=== PATIENT | female | born 1990 | race Caucasian/White ===

== ENCOUNTER 2023-10-26 07:09 | Outpatient (CLI) | payer OTHER, SELFPAY ==
--- NOTE | 2023-10-26 07:15 | CRLHL7_ITS ---
For Patients: As a result of the Century Cures Act, medical imaging exams and procedure reports are released immediately into your electronic medical record. You may view this report before your referring provider. If you have questions, please contact your health care provider. INDICATION: Ultrasound for dates and viability. Eight week 3 day gestation by LMP Technique: Multiple grayscale and Doppler images obtained transabdominally and transvaginally. FINDINGS: Examination shows a single viable intrauterine gestation. [place]-rump length 1.9 cm, AGA of 8 weeks, 3 days. Mean gestational sac 3.7 cm, AGA of 9 weeks, 0 days. Yolk sac: 2.81 cm. Heart Rate: 167 bpm. Right ovary measures 4.5 x 2.3 x 3.2 cm. Left ovary measures 3.2 x 1.5 x 2.4 cm. IMPRESSION: 1. Single viable intrauterine . 2. Measurements are consistent with clinical dates. Dictated by Solo Song MD @ 10/27/2023 9:25:07 AM (Electronically Signed)
== END 2023-10-26 07:10 | disposition home or self-care (01) ==
PROVIDERS: Visit Provider Physician Assistant
DX: Z34.91 Encounter for supervision of normal pregnancy, unspecified, first trimester (principal); Z3A.08 8 weeks gestation of pregnancy
CPT/HCPCS: 76817; 84450; 84460; 86703; 86706; 86803; 86850; 86900; 86901; 87086; 87340; 87491; 87591

== ENCOUNTER 2023-10-26 08:09 | Outpatient (CLI) | payer OTHER, SELFPAY ==
[2023-10-26 13:33] LABS: Chlamydia DNA Amplified* NOT DETECTED (No Detected); GC DNA Amplified* NOT DETECTED (No Detected)
== END 2023-10-26 08:10 | disposition home or self-care (01) ==
PROVIDERS: PCP Physician Assistant; Visit Provider Physician Assistant
DX: Z34.81 Encounter for supervision of other normal pregnancy, first trimester (principal)
CPT/HCPCS: 82239; 84450; 84460; 86592; 86703; 86704; 86706; 86762; 86787; 86803; 86850; 86900; 86901; 87086; 87340; 87491; 87591

== ENCOUNTER 2024-01-05 11:20 | Outpatient (CLI) | payer BC, SELFPAY | END 2024-01-05 11:21 | disposition home or self-care (01) | LOC: US 11:20 | PROVIDERS: Visit Provider Obstetrics & Gynecology | DX: O09.522 Supervision of elderly multigravida, second trimester (principal); Z3A.18 18 weeks gestation of pregnancy | CPT/HCPCS: 76811 ==

== ENCOUNTER 2024-02-02 09:06 | Outpatient (CLI) | payer BC, SELFPAY | END 2024-02-02 09:07 | disposition home or self-care (01) | LOC: US 09:06 | PROVIDERS: Visit Provider Obstetrics & Gynecology | DX: O09.522 Supervision of elderly multigravida, second trimester (principal); Z3A.22 22 weeks gestation of pregnancy | CPT/HCPCS: 76816 ==

== ENCOUNTER 2024-03-07 15:15 | Outpatient (CLI) | payer BC, SELFPAY | END 2024-03-07 15:16 | disposition home or self-care (01) | LOC: NFLDREF 03-11 13:23 | PROVIDERS: Visit Provider Obstetrics & Gynecology | DX: Z34.92 Encounter for supervision of normal pregnancy, unspecified, second trimester (principal); Z3A.27 27 weeks gestation of pregnancy | CPT/HCPCS: 86592 ==

== ENCOUNTER 2024-03-29 09:04 | Outpatient (CLI) | payer BC, SELFPAY | END 2024-03-29 09:05 | disposition home or self-care (01) | PROVIDERS: Visit Provider Obstetrics & Gynecology | DX: Z34.93 Encounter for supervision of normal pregnancy, unspecified, third trimester (principal); Z3A.30 30 weeks gestation of pregnancy | CPT/HCPCS: 82239; 84450; 84460 ==

== ENCOUNTER 2024-03-31 09:50 | Outpatient (CLI) | payer BC, SELFPAY ==
--- NOTE | 2024-03-31 10:00 | CRLHL7_ITS ---
For Patients: As a result of the Century Cures Act, medical imaging exams and procedure reports are released immediately into your electronic medical record. You may view this report before your referring provider. If you have questions, please contact your health care provider. INDICATION: Abnormal LFTs, cholestasis during . TECHNIQUE: Ultrasound abdomen limited. Sonographic images of the right upper quadrant were obtained using odonnell-scale and color Doppler images. COMPARISON: None available. FINDINGS: Liver: Normal in size and echotexture. No suspicious masses. No intrahepatic biliary dilatation. Main portal vein is patent with hepatopetal flow. Gallbladder: Small amount of sludge within the gallbladder neck. Normal wall thickness. No pericholecystic fluid. Common bile duct: 5 mm. Pancreas: Visualized portions are unremarkable. Right kidney: Normal in size measuring 12 cm in length. Normal echotexture and cortex. No suspicious masses, stones, or hydronephrosis. Vasculature: Proximal abdominal aorta and IVC are unremarkable. IMPRESSION: 1. Small amount of gallbladder sludge. No sonographic evidence of acute cholecystitis. 2. Otherwise unremarkable right upper quadrant abdominal ultrasound. No biliary ductal dilation. Dictated by Leatha Truong MD @ 03/31/2024 11:23:47 AM (Electronically Signed)
--- NOTE | 2024-03-31 10:00 | CRLHL7_ITS ---
For Patients: As a result of the Century Cures Act, medical imaging exams and procedure reports are released immediately into your electronic medical record. You may view this report before your referring provider. If you have questions, please contact your health care provider. INDICATION: Intrahepatic cholestasis TECHNIQUE: Real time odonnell scale imaging of the fetus was performed. COMPARISON: 02/02/2024 FINDINGS: Sonographic imaging demonstrates a single living intrauterine gestation. Fetus demonstrates a regular cardiac rate of 141 beats per minute. Fetus has a vertex position. The placenta lies anterior. Amniotic fluid volume appears normal and there is a single deepest pocket of 5.2 cm. The estimated weight is 2000gm which lies at the 90th %. On the prior OB ultrasound dated 02/02/2024 the estimated weight was at the 51st percentile. BPD 92nd percentile. HC greater than 97th percentile. AC 90th percentile. FL 57th percentile. The fetus was active and demonstrated normal breathing movements. There was normal flexion and extension of the trunk and extremities. IMPRESSION: Normal biophysical profile score 8/8. Sonographic gestational age 33 weeks 0 days and a sonographic due date 05/19/2024. Sonographic age 15 days ahead of the clinical age. Estimated weight 90th percentile. Abdominal circumference 90th percentile. HC greater than 97th percentile. Dictated by Inocencio Caceres MD @ 03/31/2024 12:45:03 PM (Electronically Signed)
== END 2024-03-31 09:51 | disposition home or self-care (01) ==
LOC: US 09:51
PROVIDERS: Visit Provider Obstetrics & Gynecology
DX: O26.643 Intrahepatic cholestasis of pregnancy, third trimester (principal); R74.8 Abnormal levels of other serum enzymes; Z87.59 Personal history of other complications of pregnancy, childbirth and the puerperium; Z87.19 Personal history of other diseases of the digestive system; Z3A.33 33 weeks gestation of pregnancy
CPT/HCPCS: 76705; 76816; 76819; 80074; 80076; 86644; 86645; 86663

== ENCOUNTER 2024-04-03 13:13 | Outpatient (CLI) | payer BC, SELFPAY | END 2024-04-03 13:14 | disposition home or self-care (01) | PROVIDERS: Visit Provider Obstetrics & Gynecology | DX: O26.643 Intrahepatic cholestasis of pregnancy, third trimester (principal); Z3A.31 31 weeks gestation of pregnancy | CPT/HCPCS: 82239; 84450; 84460; 85610; 85730; 86747; 87529 ==

== ENCOUNTER 2024-04-07 07:11 | Outpatient (CLI) | payer BC, SELFPAY ==
--- NOTE | 2024-04-07 07:15 | CRLHL7_ITS ---
For Patients: As a result of the Century Cures Act, medical imaging exams and procedure reports are released immediately into your electronic medical record. You may view this report before your referring provider. If you have questions, please contact your health care provider. INDICATION: CHOLESTASIS COMPARISON: CHOLESTASIS TECHNIQUE: Real time odonnell scale imaging of the fetus was performed. Without non-stress testing. FINDINGS: Sonographic imaging demonstrates a single living intrauterine gestation. Fetus demonstrates a regular cardiac rate of 135 beats per minute. Fetus has a vertex position. The amniotic fluid volume appears normal and there is a single deepest pocket measurement of 4.9 cm. The fetus was active and demonstrated normal breathing movements. There was normal flexion and extension of the trunk and extremities. IMPRESSION: Normal biophysical profile score of 8 out of 8. Dictated by Inocencio Caceres MD @ 04/07/2024 11:04:07 AM (Electronically Signed)
== END 2024-04-07 07:12 | disposition home or self-care (01) ==
LOC: US 07:12
PROVIDERS: Visit Provider Obstetrics & Gynecology
DX: O26.649 Intrahepatic cholestasis of pregnancy, unspecified trimester (principal); R74.8 Abnormal levels of other serum enzymes; Z87.59 Personal history of other complications of pregnancy, childbirth and the puerperium; Z87.19 Personal history of other diseases of the digestive system
CPT/HCPCS: 76819; 82239; 84450; 84460; 85610; 85730

== ENCOUNTER 2024-04-14 09:19 | Outpatient (CLI) | payer BC, SELFPAY ==
--- NOTE | 2024-04-14 09:30 | CRLHL7_ITS ---
For Patients: As a result of the Century Cures Act, medical imaging exams and procedure reports are released immediately into your electronic medical record. You may view this report before your referring provider. If you have questions, please contact your health care provider. INDICATION: Intrahepatic Cholestasis of COMPARISON: 04/07/2024 TECHNIQUE: Real time odonnell scale imaging of the fetus was performed. Without non-stress testing. FINDINGS: Sonographic imaging demonstrates a single living intrauterine gestation. Fetus demonstrates a regular cardiac rate of 149 beats per minute. Fetus has a vertex position. The amniotic fluid volume appears normal and there is a single deepest pocket measurement of 5.3 cm. The fetus was active and demonstrated normal breathing movements. There was normal flexion and extension of the trunk and extremities. IMPRESSION: Normal biophysical profile score of 8 out of 8. Dictated by Inocencio Caceres MD @ 04/15/2024 6:11:19 PM (Electronically Signed)
== END 2024-04-14 09:20 | disposition home or self-care (01) ==
LOC: US 09:19
PROVIDERS: Visit Provider Obstetrics & Gynecology
DX: O26.649 Intrahepatic cholestasis of pregnancy, unspecified trimester (principal)
CPT/HCPCS: 76819; 80076; 82239

== ENCOUNTER 2024-04-21 12:07 | Outpatient (CLI) | payer BC, SELFPAY ==
--- NOTE | 2024-04-21 12:15 | CRLHL7_ITS ---
For Patients: As a result of the Century Cures Act, medical imaging exams and procedure reports are released immediately into your electronic medical record. You may view this report before your referring provider. If you have questions, please contact your health care provider. INDICATION: Intrahepatic cholestasis COMPARISON: 04/14/2024 TECHNIQUE: Real time odonnell scale imaging of the fetus was performed. Without non-stress testing. FINDINGS: Sonographic imaging demonstrates a single living intrauterine gestation. Fetus demonstrates a regular cardiac rate of 144 beats per minute. Fetus has a vertex position. The amniotic fluid volume appears normal and there is a single deepest pocket measurement of 7.0 cm. The fetus was active and demonstrated normal breathing movements. There was normal flexion and extension of the trunk and extremities. IMPRESSION: Normal biophysical profile score of 8 out of 8. Dictated by Inocencio Caceres MD @ 04/21/2024 12:38:57 PM (Electronically Signed)
== END 2024-04-21 12:08 | disposition home or self-care (01) ==
LOC: US 12:08
PROVIDERS: Visit Provider Obstetrics & Gynecology
DX: O26.649 Intrahepatic cholestasis of pregnancy, unspecified trimester (principal)
CPT/HCPCS: 76819

== ENCOUNTER 2024-04-21 12:43 | Outpatient (CLI) | payer BC, SELFPAY | END 2024-04-21 12:44 | disposition home or self-care (01) | LOC: NFLDREF 04-24 06:37 | PROVIDERS: Visit Provider Obstetrics & Gynecology | DX: O26.643 Intrahepatic cholestasis of pregnancy, third trimester (principal); Z3A.33 33 weeks gestation of pregnancy | CPT/HCPCS: 80076; 82239; 85384; 85610; 85730 ==

== ENCOUNTER 2024-06-30 10:37 | Outpatient (CLI) | payer BC, SELFPAY | END 2024-06-30 10:38 | disposition home or self-care (01) | LOC: NFLDREF 07-04 08:22 | PROVIDERS: Visit Provider Obstetrics & Gynecology | DX: R74.8 Abnormal levels of other serum enzymes (principal) | CPT/HCPCS: 84450; 84460 ==